=== PATIENT | male | born 1965 ===

== ENCOUNTER 2018-06-06 11:48 | Emergency (ER) | payer OTHER ==
[~2018-06-06] VITALS: Ht 175.3 cm; Wt 129.7 kg
[2018-06-06] MEDS ORDERED: HYZAAR 100-251 EACH (12:21)
[2018-06-06] MEDS ORDERED: CLONAZEPAM0.25 MG (12:22)
[2018-06-06] MEDS ORDERED: BUDESONIDE0.5 MG/2 M IH (22:03)
[2018-06-06] MEDS ORDERED: ZITHROMAX500 MG PO (22:03)
[2018-06-06] MEDS ORDERED: IPRAT-ALBUT 0.5-3 ML IH (22:03)
[2018-06-06] MEDS ORDERED: MEDROLPACK PO (22:03)
== END 2018-06-06 22:53 | disposition home or self-care (01) ==
LOC: ER 11:48
DX: J45.998 Other asthma (principal)